=== PATIENT | female | born 1945 | race Two or more races ===

== ENCOUNTER 2023-01-12 23:16 | Inpatient (IN) | payer OTHER ==
[~2023-01-12] VITALS: Ht 149.9 cm; Wt 75.0 kg
[2023-01-12 23:49] LABS: Basophils # (auto) 0 10 ^3/uL (0-0.2); Basophils % (auto) 0.3 % (0.0-2.0); Eosinophils # (auto) 0 10 ^3/uL (0-0.8); Hematocrit 28.3 % (36.0-46.0); Hemoglobin 9.8 g/dL (12.2-16.2); Lymphocytes % (auto) 11.7 % (10.0-50.0); Mean Corpuscular Hemoglobin 29.9 pg (28.0-32.0); Mean Corpuscular Hgb Conc. 34.7 g/dL (32.0-36.0); Mean Corpuscular Volume 86.3 fL (80.0-100.0); Monocytes # (auto) 0.8 10 ^3/uL (0-1.3); Monocytes % (auto) 9.7 % (0.0-12.0); Neutrophils # (auto) 6.4 10 ^3/uL (1.6-8.6); Neutrophils % (auto) 78.3 % (37.0-80.0); Red Blood Cells 3.29 10^6/uL (4.0-5.20); Red Cell Distribution Width 14.5 % (11.8-14.3); White Blood Cell 8.1 10^3/uL (4.4-10.8)
[2023-01-13 00:07] LABS: Albumin 2.6 g/dL (3.4-5.0); Calcium 8.5 mg/dL (8.5-10.1); Magnesium 1.9 mg/dL (1.6-2.6); Potassium 3.6 mmol/L (3.5-5.1)
[2023-01-13 00:10] LABS: Bilirubin, Total 1.9 mg/dL (0.2-1.0); Total Protein 6.2 g/dL (6.4-8.2)
[2023-01-13] MEDS ORDERED: MORPHINE SULFATE INJ 2 MG/ml SYRG IV PRN (09:30)
[2023-01-13] MEDS ORDERED: AZITHROMYCIN 500MG/ 250ML 250 ML IV ONE (09:30)
[2023-01-13] MEDS ORDERED: cefTRIAXone 1GM/50ML D5W 50 ML IV ONE (09:30)
[2023-01-13] MEDS ORDERED: ASPirin 325 MG TAB PO ONE (09:30)
[2023-01-13] MEDS ORDERED: ALBUTEROL MEDNEB 2.5 mg/3ml NEB NEB PRN (09:45)
[2023-01-13] MEDS ORDERED: ALBUTEROL MEDNEB 2.5 mg/3ml NEB ONE (09:47)
[2023-01-13] MEDS ORDERED: IPRATROPIUM BROM 0.5 MG/2.5ML INH SOL ONE (09:47)
[2023-01-13] MEDS ORDERED: ERY05OO EACHEYE (09:49)
[2023-01-13] MEDS ORDERED: LOSA-69 PO (09:49)
[2023-01-13] MEDS ORDERED: LEVO-28 PO (09:49)
[2023-01-13] MEDS ORDERED: SIMV5TAB50 PO (09:49)
[2023-01-13] MEDS ORDERED: HYDR50TA15 PO (09:49)
[2023-01-13] MEDS ORDERED: FLUO0.1S12 EACHEYE (09:49)
[2023-01-13] MEDS ORDERED: PRED10TA PO (09:49)
[2023-01-13] MEDS ORDERED: PRED20TA2 PO (09:49)
[2023-01-13] MEDS ORDERED: FUR20T PO (09:49)
[2023-01-13] MEDS ORDERED: ATEN50TA PO (09:49)
[2023-01-13] MEDS ORDERED: CLAR1TAB21 PO (09:49)
[2023-01-13] MEDS ORDERED: HYDR200T36 PO (09:49)
[2023-01-13] MEDS ORDERED: IVER3TAB PO (09:49)
[2023-01-13] MEDS ORDERED: LEVO100T8 PO (09:49)
[2023-01-13 10:00] LABS: Cholesterol 122 mg/dL (< 200)
[2023-01-13] MEDS ORDERED: hydrALAZINE HCL 25 MG TAB PO SCH (10:00)
[2023-01-13 10:03] LABS: HDL Cholesterol 32 mg/dL (40-59); LDL Cholesterol 85 mg/dL (< 100); Triglycerides 90 mg/dL (< 150)
[2023-01-13 10:22] VITALS: BP 125/55
[2023-01-13] MEDS ORDERED: ENOXAPARIN SOD 80 MG/0.8ML SYRINGE SC ONE (10:45)
[2023-01-13] MEDS: ATENOLOL 50 MG TAB PO SCH ×2 (11:19→22:34)
[2023-01-13] MEDS: LOSARTAN POTASSIUM 50 MG TAB PO SCH ×2 (11:19→22:33)
[2023-01-13] MEDS: hydrOXYchloroQUINE SULFATE 200 MG TAB PO SCH ×2 (11:20→22:34)
[2023-01-13] MEDS: LEVOTHYROXINE SODIUM 100 MCG TAB PO SCH (11:21)
[2023-01-13] MEDS: PROMETHAZINE-DM 5 ML ORAL SYRUP PO PRN ×2 (12:06→20:10)
[2023-01-13] MEDS: SODIUM CHLORIDE 0.9% 1,000 ML IV SCH ×2 (13:02→23:48)
[2023-01-13] MEDS: ALBUTEROL MEDNEB 2.5 mg/3ml NEB NEB SCH ×3 (13:55→18:57)
[2023-01-13] MEDS: IPRATROPIUM BROM 0.5 MG/2.5ML INH SOL NEB SCH ×3 (13:55→18:57)
[2023-01-13] MEDS ORDERED: ENOXAPARIN SOD 80 MG/0.8ML SYRINGE SC SCH (22:00)
[2023-01-13] MEDS: hydrALAZINE HCL 10 MG TAB PO SCH (22:33)
[2023-01-14] MEDS: IPRATROPIUM BROM 0.5 MG/2.5ML INH SOL NEB SCH ×4 (00:19→17:53)
[2023-01-14] MEDS: ALBUTEROL MEDNEB 2.5 mg/3ml NEB NEB SCH ×4 (00:19→17:53)
[2023-01-14 00:36] VITALS: BP 132/50
[2023-01-14] MEDS: PROMETHAZINE-DM 5 ML ORAL SYRUP PO PRN ×4 (01:58→21:40)
[2023-01-14 05:19] VITALS: BP 132/64
[2023-01-14 06:04] LABS: Basophils # (auto) 0 10 ^3/uL (0-0.2); Basophils % (auto) 0.5 % (0.0-2.0); Eosinophils # (auto) 0.1 10 ^3/uL (0-0.8); Eosinophils % (auto) 0.7 % (0.0-7.0); Hematocrit 27.4 % (36.0-46.0); Hemoglobin 9.3 g/dL (12.2-16.2); Lymphocytes # (auto) 1.2 10 ^3/uL (0.4-5.4); Lymphocytes % (auto) 13.5 % (10.0-50.0); Mean Corpuscular Hemoglobin 29.6 pg (28.0-32.0); Mean Corpuscular Hgb Conc. 33.8 g/dL (32.0-36.0); Mean Corpuscular Volume 87.6 fL (80.0-100.0); Monocytes # (auto) 0.7 10 ^3/uL (0-1.3); Neutrophils # (auto) 6.6 10 ^3/uL (1.6-8.6); Neutrophils % (auto) 77.3 % (37.0-80.0); Red Blood Cells 3.13 10^6/uL (4.0-5.20); Red Cell Distribution Width 14.3 % (11.8-14.3); White Blood Cell 8.5 10^3/uL (4.4-10.8)
[2023-01-14 06:37] LABS: Albumin 2.6 g/dL (3.4-5.0); Calcium 8.4 mg/dL (8.5-10.1)
[2023-01-14 06:45] LABS: BUN/Creatinine Ratio 21.6; Bilirubin, Total 1.6 mg/dL (0.2-1.0); Total Protein 5.9 g/dL (6.4-8.2)
[2023-01-14 09:00] VITALS: BP 106/37
[2023-01-14] MEDS: hydrALAZINE HCL 10 MG TAB PO SCH ×2 (10:00→21:29)
[2023-01-14] MEDS: LOSARTAN POTASSIUM 50 MG TAB PO SCH ×2 (10:00→21:29)
[2023-01-14] MEDS ORDERED: AZITHROMYCIN 500MG/ 250ML 250 ML IV SCH (10:00)
[2023-01-14] MEDS: hydrOXYchloroQUINE SULFATE 200 MG TAB PO SCH ×2 (12:22→21:28)
[2023-01-14] MEDS: cefTRIAXone 1GM/50ML D5W 50 ML IV SCH (12:23)
[2023-01-14] MEDS: ASPirin 81 mg TAB PO SCH (12:23)
[2023-01-14] MEDS: ATENOLOL 50 MG TAB PO SCH ×2 (12:23→21:28)
[2023-01-14] MEDS: LEVOTHYROXINE SODIUM 100 MCG TAB PO SCH (12:23)
[2023-01-14 12:58] VITALS: BP 111/53
[2023-01-14] MEDS: SODIUM CHLORIDE 0.9% 1,000 ML IV SCH (14:06)
[2023-01-14 16:35] VITALS: BP 124/49
[2023-01-14] MEDS: ACETAMINOPHEN 325 MG TAB PO PRN (21:27)
[2023-01-14 21:48] VITALS: BP 129/45
[2023-01-14 22:25] LABS: Urine Bacteria NONE SEEN /hpf (None Seen); Urine Blood 2+ /uL (Negative); Urine Mucus FEW (None Seen); Urine Specific Gravity 1.027 (1.001-1.035); Urine WBC 5 /hpf (0 - 5)
[2023-01-15] VITALS (28 sets, daily range): BP systolic 106–160; BP diastolic 44–71
[2023-01-15] MEDS: ALBUTEROL MEDNEB 2.5 mg/3ml NEB NEB SCH ×3 (00:17→18:21)
[2023-01-15] MEDS: IPRATROPIUM BROM 0.5 MG/2.5ML INH SOL NEB SCH ×3 (00:17→18:20)
[2023-01-15] MEDS: PROMETHAZINE-DM 5 ML ORAL SYRUP PO PRN ×2 (03:21→22:24)
[2023-01-15] MEDS ORDERED: FUROSEMIDE 40 MG/4 ML VIAL IV ONE (08:30)
[2023-01-15] MEDS: ATENOLOL 50 MG TAB PO SCH ×2 (09:10→22:20)
[2023-01-15] MEDS: cefTRIAXone 1GM/50ML D5W 50 ML IV SCH (09:10)
[2023-01-15] MEDS: LOSARTAN POTASSIUM 50 MG TAB PO SCH ×2 (10:00→22:19)
[2023-01-15] MEDS: hydrOXYchloroQUINE SULFATE 200 MG TAB PO SCH ×2 (10:00→22:00)
[2023-01-15] MEDS: ASPirin 81 mg TAB PO SCH (10:00)
[2023-01-15] MEDS: LEVOTHYROXINE SODIUM 100 MCG TAB PO SCH (10:00)
[2023-01-15] MEDS: hydrALAZINE HCL 10 MG TAB PO SCH ×2 (10:00→22:19)
[2023-01-15] MEDS ORDERED: LORazepam 2MG/ML-1ML VIAL IV PRN (13:00)
[2023-01-15] MEDS: ALPRAZolam 0.5 MG TAB PO PRN (14:14)
[2023-01-15] MEDS: Ensure HIGH Protein Chocolate 8oz Bottle PO SCH (17:32)
[2023-01-15] MEDS: FUROSEMIDE 20 MG/2 ML VIAL IV SCH (17:32)
[2023-01-15] MEDS ORDERED: ALBUTEROL SULF 2.5 MG/0.5ML(0.5%) NEB SOLN ONE (17:37)
[2023-01-15] MEDS ORDERED: ALBUTEROL SULF 2.5 MG/0.5ML(0.5%) NEB SOLN NEB PRN (20:45)
[2023-01-15] MEDS: POTASSIUM EFFERVESENT TAB 25 MEQ PO SCH (22:20)
[2023-01-15 22:45] LABS: Potassium 3.8 mmol/L (3.5-5.1)
[2023-01-15 22:49] LABS: Magnesium 2.3 mg/dL (1.6-2.6)
[2023-01-16] VITALS (53 sets, daily range): BP systolic 90–174; BP diastolic 39–86
[2023-01-16] MEDS: IPRATROPIUM BROM 0.5 MG/2.5ML INH SOL NEB SCH ×4 (00:12→18:16)
[2023-01-16] MEDS: ALBUTEROL SULF 2.5 MG/0.5ML(0.5%) NEB SOLN NEB SCH ×4 (00:13→18:16)
[2023-01-16] MEDS: BUDESONIDE (INHALATION) 0.5 MG/2 ML NEB NEB SCH ×4 (00:13→18:16)
[2023-01-16] MEDS: FUROSEMIDE 20 MG/2 ML VIAL IV SCH ×2 (05:47→17:26)
[2023-01-16] MEDS: PROMETHAZINE-DM 5 ML ORAL SYRUP PO PRN ×3 (05:47→19:50)
[2023-01-16 06:05] LABS: Basophils # (auto) 0 10 ^3/uL (0-0.2); Eosinophils # (auto) 0.1 10 ^3/uL (0-0.8); Hemoglobin 8.3 g/dL (12.2-16.2); Lymphocytes # (auto) 0.8 10 ^3/uL (0.4-5.4); Monocytes # (auto) 0.6 10 ^3/uL (0-1.3); Red Cell Distribution Width 14.2 % (11.8-14.3)
[2023-01-16 06:08] LABS: Basophils % (auto) 0.3 % (0.0-2.0); Eosinophils % (auto) 1.3 % (0.0-7.0); Hematocrit 24.1 % (36.0-46.0); Lymphocytes % (auto) 10.4 % (10.0-50.0); Mean Corpuscular Hemoglobin 29.2 pg (28.0-32.0); Mean Corpuscular Hgb Conc. 34.5 g/dL (32.0-36.0); Mean Corpuscular Volume 84.6 fL (80.0-100.0); Monocytes % (auto) 7.4 % (0.0-12.0); Neutrophils # (auto) 6.5 10 ^3/uL (1.6-8.6); Neutrophils % (auto) 80.6 % (37.0-80.0); Red Blood Cells 2.85 10^6/uL (4.0-5.20); White Blood Cell 8.1 10^3/uL (4.4-10.8)
[2023-01-16 06:23] LABS: Potassium 4.2 mmol/L (3.5-5.1)
[2023-01-16 06:34] LABS: BUN/Creatinine Ratio 25.7; Calcium 8.3 mg/dL (8.5-10.1)
[2023-01-16] MEDS: Ensure HIGH Protein Chocolate 8oz Bottle PO SCH ×3 (08:14→17:26)
[2023-01-16] MEDS: cefTRIAXone 1GM/50ML D5W 50 ML IV SCH (08:15)
[2023-01-16] MEDS: hydrALAZINE HCL 10 MG TAB PO SCH ×2 (08:15→22:03)
[2023-01-16] MEDS: LOSARTAN POTASSIUM 50 MG TAB PO SCH ×2 (08:15→21:06)
[2023-01-16] MEDS: POTASSIUM EFFERVESENT TAB 25 MEQ PO SCH ×2 (08:16→21:06)
[2023-01-16] MEDS: ATENOLOL 50 MG TAB PO SCH ×2 (08:17→21:07)
[2023-01-16] MEDS: hydrOXYchloroQUINE SULFATE 200 MG TAB PO SCH ×2 (08:38→22:03)
[2023-01-16] MEDS: ASPirin 81 mg TAB PO SCH (08:38)
[2023-01-16] MEDS: LEVOTHYROXINE SODIUM 100 MCG TAB PO SCH (08:38)
[2023-01-16] MEDS ORDERED: FUROSEMIDE 40 MG/4 ML VIAL IV ONE (17:15)
[2023-01-16] MEDS ORDERED: AMIODARONE HCL 150 MG in D5W 5% 100 ML IV ONE (19:00)
[2023-01-16] MEDS ORDERED: dilTIAZem 25 MG/5 ML VIAL IV ONE ×2 (19:00→19:03)
[2023-01-16] MEDS ORDERED: AMIODARONE HCL (50 MG/ ML) 3 ML VIAL IV ONE (19:09)
[2023-01-16] MEDS ORDERED: AMIODARONE 450mg/250ml AE 250 ML IV ONE (19:09)
[2023-01-16] MEDS ORDERED: AMIODARONE HCL 900 MG in DEXTROSE 500 ML IV SCH (19:15)
[2023-01-16] MEDS: AMIODARONE 450mg/250ml AE 250 ML IV SCH ×5 (19:20→19:45)
[2023-01-16] MEDS: ALPRAZolam 0.5 MG TAB PO PRN ×2 (19:50→20:23)
[2023-01-16 21:07] LABS: Basophils # (auto) 0 10 ^3/uL (0-0.2); Basophils % (auto) 0.3 % (0.0-2.0); Eosinophils # (auto) 0.1 10 ^3/uL (0-0.8); Eosinophils % (auto) 0.9 % (0.0-7.0); Hematocrit 27.7 % (36.0-46.0); Hemoglobin 9.1 g/dL (12.2-16.2); Lymphocytes # (auto) 0.9 10 ^3/uL (0.4-5.4); Lymphocytes % (auto) 8.1 % (10.0-50.0); Mean Corpuscular Hemoglobin 29.2 pg (28.0-32.0); Mean Corpuscular Hgb Conc. 33.1 g/dL (32.0-36.0); Mean Corpuscular Volume 88.4 fL (80.0-100.0); Monocytes # (auto) 0.7 10 ^3/uL (0-1.3); Monocytes % (auto) 6.5 % (0.0-12.0); Neutrophils # (auto) 9.5 10 ^3/uL (1.6-8.6); Neutrophils % (auto) 84.2 % (37.0-80.0); Nucleated Red Blood Cells % 0.2 %; Red Blood Cells 3.13 10^6/uL (4.0-5.20); Red Cell Distribution Width 14.6 % (11.8-14.3); White Blood Cell 11.3 10^3/uL (4.4-10.8)
[2023-01-16 21:10] LABS: Albumin 2.2 g/dL (3.4-5.0); BUN/Creatinine Ratio 22.6; Calcium 8.6 mg/dL (8.5-10.1); Magnesium 2.1 mg/dL (1.6-2.6)
[2023-01-16 21:19] LABS: Bilirubin, Total 1.4 mg/dL (0.2-1.0); Total Protein 6.9 g/dL (6.4-8.2)
[2023-01-16 21:20] LABS: INR 1.03 (0.9-1.15); Partial Thromboplastin Time 23.9 sec (24.6-33.4)
[2023-01-16] MEDS: HEPARIN DRIP/D5W 100UNITS/ML 250 ML IV SCH (22:06)
[2023-01-17] VITALS (50 sets, daily range): BP systolic 97–150; BP diastolic 34–60
[2023-01-17] MEDS: ALBUTEROL SULF 2.5 MG/0.5ML(0.5%) NEB SOLN NEB SCH ×5 (00:16→22:29)
[2023-01-17] MEDS: IPRATROPIUM BROM 0.5 MG/2.5ML INH SOL NEB SCH ×5 (00:16→22:29)
[2023-01-17] MEDS: FUROSEMIDE 20 MG/2 ML VIAL IV SCH ×2 (06:26→19:19)
[2023-01-17 06:38] LABS: INR 1.02 (0.9-1.15); Partial Thromboplastin Time 29.3 sec (24.6-33.4)
[2023-01-17] MEDS: HEPARIN DRIP/D5W 100UNITS/ML 250 ML IV SCH ×3 (06:55→16:56)
[2023-01-17] MEDS ORDERED: HEPARIN SODIUM (PORCINE) 5000 UNITS/ML 1ML VIAL ONE (06:57)
[2023-01-17] MEDS: Ensure HIGH Protein Chocolate 8oz Bottle PO SCH ×3 (08:00→18:00)
[2023-01-17] MEDS ORDERED: HEPARIN DRIP/D5W 100UNITS/ML 250 ML IV SCH (09:30)
[2023-01-17] MEDS: BUDESONIDE (INHALATION) 0.5 MG/2 ML NEB NEB SCH ×2 (09:32→18:32)
[2023-01-17] MEDS: LEVOTHYROXINE SODIUM 100 MCG TAB PO SCH (11:22)
[2023-01-17] MEDS: ASPirin 81 mg TAB PO SCH (11:23)
[2023-01-17] MEDS: hydrALAZINE HCL 10 MG TAB PO SCH ×2 (11:24→21:23)
[2023-01-17] MEDS: ATENOLOL 50 MG TAB PO SCH ×2 (11:25→21:25)
[2023-01-17] MEDS: PROMETHAZINE-DM 5 ML ORAL SYRUP PO PRN ×4 (11:26→21:24)
[2023-01-17] MEDS: POTASSIUM EFFERVESENT TAB 25 MEQ PO SCH ×2 (11:27→21:22)
[2023-01-17] MEDS: LOSARTAN POTASSIUM 50 MG TAB PO SCH ×2 (11:27→21:23)
[2023-01-17] MEDS: cefTRIAXone 1GM/50ML D5W 50 ML IV SCH (11:54)
[2023-01-17] MEDS: hydrOXYchloroQUINE SULFATE 200 MG TAB PO SCH ×2 (12:07→21:22)
[2023-01-17 13:31] LABS: INR 1.03 (0.9-1.15); Partial Thromboplastin Time 48.1 sec (24.6-33.4)
[2023-01-17] MEDS: AMIODARONE 450mg/250ml AE 250 ML IV SCH (13:37)
[2023-01-17] MEDS: ALPRAZolam 0.5 MG TAB PO PRN (21:24)
[2023-01-17] MEDS ORDERED: HEPARIN SODIUM (PORCINE) 5000 UNITS/ML 1ML VIAL IV ONE (22:30)
[2023-01-18] VITALS (40 sets, daily range): BP systolic 105–148; BP diastolic 41–68
[2023-01-18] MEDS: FUROSEMIDE 20 MG/2 ML VIAL IV SCH ×2 (04:54→17:26)
[2023-01-18 06:29] LABS: INR 1.02 (0.9-1.15); Partial Thromboplastin Time 61.3 sec (24.6-33.4)
[2023-01-18] MEDS: ALBUTEROL SULF 2.5 MG/0.5ML(0.5%) NEB SOLN NEB SCH ×4 (06:44→23:54)
[2023-01-18] MEDS: IPRATROPIUM BROM 0.5 MG/2.5ML INH SOL NEB SCH ×4 (06:44→23:54)
[2023-01-18] MEDS: BUDESONIDE (INHALATION) 0.5 MG/2 ML NEB NEB SCH ×2 (06:45→18:04)
[2023-01-18] MEDS: HEPARIN DRIP/D5W 100UNITS/ML 250 ML IV SCH (07:40)
[2023-01-18] MEDS: AMIODARONE 450mg/250ml AE 250 ML IV SCH (07:40)
[2023-01-18] MEDS: PROMETHAZINE-DM 5 ML ORAL SYRUP PO PRN ×4 (08:42→22:57)
[2023-01-18 09:48] LABS: INR 1.04 (0.9-1.15)
[2023-01-18] MEDS: cefTRIAXone 1GM/50ML D5W 50 ML IV SCH (10:21)
[2023-01-18] MEDS: ASPirin 81 mg TAB PO SCH (10:21)
[2023-01-18] MEDS: Ensure HIGH Protein Chocolate 8oz Bottle PO SCH ×3 (10:21→18:44)
[2023-01-18] MEDS: ATENOLOL 50 MG TAB PO SCH ×2 (10:22→21:55)
[2023-01-18] MEDS: hydrALAZINE HCL 10 MG TAB PO SCH ×2 (10:22→21:54)
[2023-01-18] MEDS: LEVOTHYROXINE SODIUM 100 MCG TAB PO SCH (10:23)
[2023-01-18] MEDS: POTASSIUM EFFERVESENT TAB 25 MEQ PO SCH ×2 (10:24→21:54)
[2023-01-18] MEDS: hydrOXYchloroQUINE SULFATE 200 MG TAB PO SCH ×2 (10:24→21:53)
[2023-01-18] MEDS: LOSARTAN POTASSIUM 50 MG TAB PO SCH ×2 (11:33→21:54)
[2023-01-18] MEDS: AZITHROMYCIN 500MG/ 250ML 250 ML IV SCH (11:33)
[2023-01-18 11:54] LABS: Partial Thromboplastin Time 129.6 sec (24.6-33.4)
[2023-01-18] MEDS: methylPREDNISolone SOD SUCC 40 MG/ML VL IV SCH ×2 (14:23→21:53)
[2023-01-18 19:39] LABS: INR 1.01 (0.9-1.15)
[2023-01-18 19:41] LABS: Partial Thromboplastin Time 91.7 sec (24.6-33.4)
[2023-01-19] VITALS (31 sets, daily range): BP systolic 128–160; BP diastolic 47–75
[2023-01-19] MEDS: AMIODARONE 450mg/250ml AE 250 ML IV SCH (00:34)
[2023-01-19] MEDS: IPRATROPIUM BROM 0.5 MG/2.5ML INH SOL NEB SCH ×4 (05:46→23:50)
[2023-01-19] MEDS: BUDESONIDE (INHALATION) 0.5 MG/2 ML NEB NEB SCH ×2 (05:46→19:21)
[2023-01-19] MEDS: ALBUTEROL SULF 2.5 MG/0.5ML(0.5%) NEB SOLN NEB SCH ×4 (05:46→23:50)
[2023-01-19] MEDS: FUROSEMIDE 20 MG/2 ML VIAL IV SCH ×2 (06:04→17:44)
[2023-01-19] MEDS: methylPREDNISolone SOD SUCC 40 MG/ML VL IV SCH ×3 (06:04→21:48)
[2023-01-19] MEDS: HEPARIN DRIP/D5W 100UNITS/ML 250 ML IV SCH ×2 (07:00→09:00)
[2023-01-19 07:40] LABS: Basophils # (auto) 0 10 ^3/uL (0-0.2); Basophils % (auto) 0.3 % (0.0-2.0); Eosinophils # (auto) 0 10 ^3/uL (0-0.8); Hematocrit 23.5 % (36.0-46.0); Lymphocytes # (auto) 0.7 10 ^3/uL (0.4-5.4); Monocytes # (auto) 0.2 10 ^3/uL (0-1.3); Monocytes % (auto) 2.1 % (0.0-12.0); Red Blood Cells 2.78 10^6/uL (4.0-5.20); Red Cell Distribution Width 14.5 % (11.8-14.3)
[2023-01-19 07:42] LABS: Lymphocytes % (auto) 6.8 % (10.0-50.0); Mean Corpuscular Hemoglobin 28.6 pg (28.0-32.0); Mean Corpuscular Hgb Conc. 33.9 g/dL (32.0-36.0); Mean Corpuscular Volume 84.4 fL (80.0-100.0); Neutrophils # (auto) 9.2 10 ^3/uL (1.6-8.6); Neutrophils % (auto) 90.8 % (37.0-80.0); White Blood Cell 10.2 10^3/uL (4.4-10.8)
[2023-01-19 08:26] LABS: BUN/Creatinine Ratio 27.2; Calcium 8.7 mg/dL (8.5-10.1); Potassium 4.9 mmol/L (3.5-5.1)
[2023-01-19] MEDS: Ensure HIGH Protein Chocolate 8oz Bottle PO SCH ×3 (09:00→18:14)
[2023-01-19] MEDS: PROMETHAZINE-DM 5 ML ORAL SYRUP PO PRN ×3 (09:15→21:50)
[2023-01-19] MEDS: cefTRIAXone 1GM/50ML D5W 50 ML IV SCH (09:30)
[2023-01-19] MEDS: hydrALAZINE HCL 10 MG TAB PO SCH ×2 (09:37→21:49)
[2023-01-19] MEDS: ASPirin 81 mg TAB PO SCH (09:37)
[2023-01-19] MEDS: LEVOTHYROXINE SODIUM 100 MCG TAB PO SCH (09:38)
[2023-01-19] MEDS: hydrOXYchloroQUINE SULFATE 200 MG TAB PO SCH ×2 (09:38→21:50)
[2023-01-19] MEDS: POTASSIUM EFFERVESENT TAB 25 MEQ PO SCH ×2 (09:38→21:49)
[2023-01-19] MEDS: LOSARTAN POTASSIUM 50 MG TAB PO SCH ×2 (09:38→21:49)
[2023-01-19] MEDS: ATENOLOL 50 MG TAB PO SCH ×2 (09:39→21:50)
[2023-01-19] MEDS: AZITHROMYCIN 500MG/ 250ML 250 ML IV SCH (10:40)
[2023-01-19 11:10] LABS: INR 1.01 (0.9-1.15)
[2023-01-19 11:13] LABS: Partial Thromboplastin Time 95.4 sec (24.6-33.4)
[2023-01-19] MEDS ORDERED: HEPARIN DRIP/D5W 100UNITS/ML 250 ML IV SCH ×2 (12:15→20:15)
[2023-01-19] MEDS ORDERED: ACETYLCYSTEINE 20%(200MG/ML) SOL 4ML NEB SCH (14:00)
[2023-01-19 19:12] LABS: INR 1.01 (0.9-1.15); Partial Thromboplastin Time 46.7 sec (24.6-33.4)
[2023-01-19] MEDS: ACETYLCYSTEINE 20%(200MG/ML) SOL 4ML NEB SCH ×2 (19:22→23:50)
[2023-01-20] VITALS (24 sets, daily range): BP systolic 111–154; BP diastolic 50–65
[2023-01-20 02:32] LABS: INR 1.02 (0.9-1.15)
[2023-01-20 02:56] LABS: Partial Thromboplastin Time 81.4 sec (24.6-33.4)
[2023-01-20] MEDS: AMIODARONE 450mg/250ml AE 250 ML IV SCH (03:10)
[2023-01-20 05:41] LABS: INR 1.03 (0.9-1.15); Partial Thromboplastin Time 55.7 sec (24.6-33.4)
[2023-01-20] MEDS: FUROSEMIDE 20 MG/2 ML VIAL IV SCH ×2 (06:18→18:02)
[2023-01-20] MEDS: methylPREDNISolone SOD SUCC 40 MG/ML VL IV SCH ×3 (06:18→22:40)
[2023-01-20] MEDS: PROMETHAZINE-DM 5 ML ORAL SYRUP PO PRN ×2 (06:28→23:24)
[2023-01-20] MEDS: IPRATROPIUM BROM 0.5 MG/2.5ML INH SOL NEB SCH ×4 (06:32→23:55)
[2023-01-20] MEDS: BUDESONIDE (INHALATION) 0.5 MG/2 ML NEB NEB SCH ×2 (06:32→18:19)
[2023-01-20] MEDS: ALBUTEROL SULF 2.5 MG/0.5ML(0.5%) NEB SOLN NEB SCH ×4 (06:32→23:55)
[2023-01-20] MEDS: ACETYLCYSTEINE 20%(200MG/ML) SOL 4ML NEB SCH ×4 (06:32→23:55)
[2023-01-20] MEDS ORDERED: HEPARIN DRIP/D5W 100UNITS/ML 250 ML IV SCH (07:15)
[2023-01-20] MEDS: Ensure HIGH Protein Chocolate 8oz Bottle PO SCH ×3 (08:49→18:02)
[2023-01-20] MEDS: cefTRIAXone 1GM/50ML D5W 50 ML IV SCH (09:26)
[2023-01-20] MEDS: ASPirin 81 mg TAB PO SCH (09:26)
[2023-01-20] MEDS: hydrALAZINE HCL 10 MG TAB PO SCH ×3 (09:27→23:22)
[2023-01-20] MEDS: AMIODARONE HCL 200 MG TAB PO SCH ×2 (09:27→22:29)
[2023-01-20] MEDS: LEVOTHYROXINE SODIUM 100 MCG TAB PO SCH (09:28)
[2023-01-20] MEDS: LOSARTAN POTASSIUM 50 MG TAB PO SCH ×3 (09:28→23:23)
[2023-01-20] MEDS: POTASSIUM EFFERVESENT TAB 25 MEQ PO SCH ×2 (09:28→22:39)
[2023-01-20] MEDS: ATENOLOL 50 MG TAB PO SCH ×2 (09:28→22:53)
[2023-01-20] MEDS: hydrOXYchloroQUINE SULFATE 200 MG TAB PO SCH ×2 (09:28→22:39)
[2023-01-20] MEDS: AZITHROMYCIN 500MG/ 250ML 250 ML IV SCH (10:00)
[2023-01-20 11:32] LABS: INR 1.03 (0.9-1.15)
[2023-01-20 17:25] LABS: INR 1.03 (0.9-1.15); Partial Thromboplastin Time 51.1 sec (24.6-33.4)
[2023-01-21] VITALS (24 sets, daily range): BP systolic 116–148; BP diastolic 41–72
[2023-01-21] MEDS: methylPREDNISolone SOD SUCC 40 MG/ML VL IV SCH ×3 (06:21→21:38)
[2023-01-21] MEDS: FUROSEMIDE 20 MG/2 ML VIAL IV SCH ×2 (06:21→17:59)
[2023-01-21] MEDS: IPRATROPIUM BROM 0.5 MG/2.5ML INH SOL NEB SCH ×3 (06:43→19:15)
[2023-01-21] MEDS: ACETYLCYSTEINE 20%(200MG/ML) SOL 4ML NEB SCH ×3 (06:43→19:16)
[2023-01-21] MEDS: ALBUTEROL SULF 2.5 MG/0.5ML(0.5%) NEB SOLN NEB SCH ×3 (06:43→19:15)
[2023-01-21] MEDS: BUDESONIDE (INHALATION) 0.5 MG/2 ML NEB NEB SCH ×2 (06:43→19:16)
[2023-01-21 07:07] LABS: INR 1.03 (0.9-1.15); Partial Thromboplastin Time 27.8 sec (24.6-33.4)
[2023-01-21] MEDS: Ensure HIGH Protein Chocolate 8oz Bottle PO SCH ×3 (08:00→18:02)
[2023-01-21] MEDS: cefTRIAXone 1GM/50ML D5W 50 ML IV SCH (09:00)
[2023-01-21] MEDS: hydrALAZINE HCL 10 MG TAB PO SCH ×2 (10:00→21:39)
[2023-01-21] MEDS: AZITHROMYCIN 500MG/ 250ML 250 ML IV SCH (10:00)
[2023-01-21] MEDS: ASPirin 81 mg TAB PO SCH (10:00)
[2023-01-21] MEDS: POTASSIUM EFFERVESENT TAB 25 MEQ PO SCH ×2 (10:00→21:41)
[2023-01-21] MEDS: LOSARTAN POTASSIUM 50 MG TAB PO SCH ×2 (10:00→21:40)
[2023-01-21] MEDS: LEVOTHYROXINE SODIUM 100 MCG TAB PO SCH (10:00)
[2023-01-21] MEDS: AMIODARONE HCL 200 MG TAB PO SCH ×2 (10:00→21:38)
[2023-01-21] MEDS: ATENOLOL 50 MG TAB PO SCH ×2 (10:00→21:43)
[2023-01-21] MEDS: hydrOXYchloroQUINE SULFATE 200 MG TAB PO SCH ×2 (12:16→21:43)
[2023-01-21] MEDS: PROMETHAZINE-DM 5 ML ORAL SYRUP PO PRN ×2 (18:00→21:43)
[2023-01-22] VITALS (29 sets, daily range): BP systolic 118–162; BP diastolic 47–73
[2023-01-22] MEDS: ALBUTEROL SULF 2.5 MG/0.5ML(0.5%) NEB SOLN NEB SCH ×4 (00:34→18:14)
[2023-01-22] MEDS: IPRATROPIUM BROM 0.5 MG/2.5ML INH SOL NEB SCH ×4 (00:34→18:14)
[2023-01-22] MEDS: ACETYLCYSTEINE 20%(200MG/ML) SOL 4ML NEB SCH ×4 (00:34→18:15)
[2023-01-22] MEDS: FUROSEMIDE 20 MG/2 ML VIAL IV SCH ×2 (05:41→18:01)
[2023-01-22] MEDS: methylPREDNISolone SOD SUCC 40 MG/ML VL IV SCH ×3 (05:41→21:15)
[2023-01-22] MEDS: PROMETHAZINE-DM 5 ML ORAL SYRUP PO PRN ×3 (05:44→23:45)
[2023-01-22 06:16] LABS: Basophils # (auto) 0 10 ^3/uL (0-0.2); Basophils % (auto) 0.1 % (0.0-2.0); Eosinophils # (auto) 0 10 ^3/uL (0-0.8); Hematocrit 26.3 % (36.0-46.0); Hemoglobin 8.7 g/dL (12.2-16.2); Lymphocytes # (auto) 0.9 10 ^3/uL (0.4-5.4); Lymphocytes % (auto) 5.4 % (10.0-50.0); Mean Corpuscular Hemoglobin 28.4 pg (28.0-32.0); Mean Corpuscular Hgb Conc. 33.1 g/dL (32.0-36.0); Mean Corpuscular Volume 85.8 fL (80.0-100.0); Monocytes # (auto) 0.8 10 ^3/uL (0-1.3); Monocytes % (auto) 4.8 % (0.0-12.0); Neutrophils % (auto) 89.7 % (37.0-80.0); Nucleated Red Blood Cells % 0.2 %; Red Blood Cells 3.07 10^6/uL (4.0-5.20); Red Cell Distribution Width 14.8 % (11.8-14.3); White Blood Cell 16.7 10^3/uL (4.4-10.8)
[2023-01-22 06:33] LABS: BUN/Creatinine Ratio 47.9; Calcium 8.5 mg/dL (8.5-10.1)
[2023-01-22] MEDS: Ensure HIGH Protein Chocolate 8oz Bottle PO SCH ×3 (09:13→18:12)
[2023-01-22] MEDS: cefTRIAXone 1GM/50ML D5W 50 ML IV SCH (09:14)
[2023-01-22] MEDS: hydrOXYchloroQUINE SULFATE 200 MG TAB PO SCH ×2 (09:33→21:17)
[2023-01-22] MEDS: AZITHROMYCIN 500MG/ 250ML 250 ML IV SCH (09:33)
[2023-01-22] MEDS: ASPirin 81 mg TAB PO SCH (09:34)
[2023-01-22] MEDS: POTASSIUM EFFERVESENT TAB 25 MEQ PO SCH ×2 (09:34→21:14)
[2023-01-22] MEDS: LEVOTHYROXINE SODIUM 100 MCG TAB PO SCH (09:35)
[2023-01-22] MEDS: hydrALAZINE HCL 10 MG TAB PO SCH ×2 (09:35→21:16)
[2023-01-22] MEDS: AMIODARONE HCL 200 MG TAB PO SCH ×2 (09:36→21:16)
[2023-01-22] MEDS: ATENOLOL 50 MG TAB PO SCH ×2 (09:36→21:16)
[2023-01-22] MEDS: LOSARTAN POTASSIUM 50 MG TAB PO SCH ×2 (09:36→21:15)
[2023-01-22] MEDS: BUDESONIDE (INHALATION) 0.5 MG/2 ML NEB NEB SCH ×2 (10:00→18:14)
[2023-01-22] MEDS ORDERED: IOHEXOL 350 MG/ML 100ML IJ ONE (14:57)
[2023-01-22] MEDS: ACETAMINOPHEN 325 MG TAB PO PRN (21:15)
[2023-01-23] VITALS (13 sets, daily range): BP systolic 130–154; BP diastolic 51–68
[2023-01-23] MEDS: IPRATROPIUM BROM 0.5 MG/2.5ML INH SOL NEB SCH ×4 (00:23→19:26)
[2023-01-23] MEDS: ALBUTEROL SULF 2.5 MG/0.5ML(0.5%) NEB SOLN NEB SCH ×4 (00:23→19:26)
[2023-01-23] MEDS: ACETYLCYSTEINE 20%(200MG/ML) SOL 4ML NEB SCH ×4 (00:24→19:26)
[2023-01-23 05:59] LABS: Hematocrit 27.7 % (36.0-46.0); Mean Corpuscular Hemoglobin 28.3 pg (28.0-32.0); Mean Corpuscular Hgb Conc. 32.4 g/dL (32.0-36.0); Mean Corpuscular Volume 87.2 fL (80.0-100.0); Red Blood Cells 3.18 10^6/uL (4.0-5.20); Red Cell Distribution Width 15.5 % (11.8-14.3); White Blood Cell 15.7 10^3/uL (4.4-10.8)
[2023-01-23] MEDS: methylPREDNISolone SOD SUCC 40 MG/ML VL IV SCH ×3 (06:01→22:33)
[2023-01-23] MEDS: FUROSEMIDE 20 MG/2 ML VIAL IV SCH ×2 (06:01→17:31)
[2023-01-23] MEDS: BUDESONIDE (INHALATION) 0.5 MG/2 ML NEB NEB SCH ×2 (06:31→19:26)
[2023-01-23 06:34] LABS: Potassium 4.2 mmol/L (3.5-5.1)
[2023-01-23 06:38] LABS: Basophils % (manual) 0 (0.0-2.0); Blast Cells 0; Eosinophils % (manual) 0 (0-7); Metamyelocytes % 0; Monocytes % (manual) 0 (0-12); Promyelocytes % 0; Reactive Lymphocytes 0
[2023-01-23 07:04] LABS: BUN/Creatinine Ratio 53.9; Calcium 8.4 mg/dL (8.5-10.1)
[2023-01-23 07:46] LABS: Band Neutrophils % (manual) 2; Lymphocytes % (manual) 6 (10.0-50.0); Myelocytes % 2
[2023-01-23] MEDS: LEVOTHYROXINE SODIUM 100 MCG TAB PO SCH (08:03)
[2023-01-23] MEDS: Ensure HIGH Protein Chocolate 8oz Bottle PO SCH ×3 (08:15→17:31)
[2023-01-23] MEDS: LOSARTAN POTASSIUM 50 MG TAB PO SCH ×2 (09:32→22:35)
[2023-01-23] MEDS: POTASSIUM EFFERVESENT TAB 25 MEQ PO SCH ×2 (09:32→22:30)
[2023-01-23] MEDS: hydrALAZINE HCL 10 MG TAB PO SCH ×2 (09:33→22:34)
[2023-01-23] MEDS: cefTRIAXone 1GM/50ML D5W 50 ML IV SCH (09:34)
[2023-01-23] MEDS: AZITHROMYCIN 500MG/ 250ML 250 ML IV SCH (09:34)
[2023-01-23] MEDS: ATENOLOL 50 MG TAB PO SCH (09:35)
[2023-01-23] MEDS: ASPirin 81 mg TAB PO SCH (09:35)
[2023-01-23] MEDS: AMIODARONE HCL 200 MG TAB PO SCH ×2 (09:36→22:35)
[2023-01-23] MEDS: hydrOXYchloroQUINE SULFATE 200 MG TAB PO SCH ×2 (09:37→22:33)
[2023-01-23] MEDS: PROMETHAZINE-DM 5 ML ORAL SYRUP PO PRN ×2 (10:02→22:32)
[2023-01-24] MEDS: IPRATROPIUM BROM 0.5 MG/2.5ML INH SOL NEB SCH ×4 (01:09→18:42)
[2023-01-24] MEDS: ALBUTEROL SULF 2.5 MG/0.5ML(0.5%) NEB SOLN NEB SCH ×4 (01:09→18:42)
[2023-01-24] MEDS: ACETYLCYSTEINE 20%(200MG/ML) SOL 4ML NEB SCH ×4 (01:09→18:42)
[2023-01-24] MEDS: ATENOLOL 50 MG TAB PO SCH ×3 (01:15→21:25)
[2023-01-24 05:00] VITALS: BP 135/73
[2023-01-24] MEDS: FUROSEMIDE 20 MG/2 ML VIAL IV SCH ×2 (05:30→21:21)
[2023-01-24] MEDS: methylPREDNISolone SOD SUCC 40 MG/ML VL IV SCH ×3 (05:31→21:21)
[2023-01-24] MEDS: BUDESONIDE (INHALATION) 0.5 MG/2 ML NEB NEB SCH ×2 (06:06→18:42)
[2023-01-24 09:00] VITALS: BP 117/57
[2023-01-24] MEDS: cefTRIAXone 1GM/50ML D5W 50 ML IV SCH (09:59)
[2023-01-24] MEDS: POTASSIUM EFFERVESENT TAB 25 MEQ PO SCH ×2 (09:59→21:23)
[2023-01-24] MEDS: LOSARTAN POTASSIUM 50 MG TAB PO SCH ×2 (10:00→21:22)
[2023-01-24] MEDS: AMIODARONE HCL 200 MG TAB PO SCH (10:00)
[2023-01-24] MEDS: ASPirin 81 mg TAB PO SCH (10:00)
[2023-01-24] MEDS: hydrALAZINE HCL 10 MG TAB PO SCH ×2 (10:01→21:22)
[2023-01-24] MEDS: LEVOTHYROXINE SODIUM 100 MCG TAB PO SCH (10:06)
[2023-01-24] MEDS: hydrOXYchloroQUINE SULFATE 200 MG TAB PO SCH ×2 (10:06→21:23)
[2023-01-24] MEDS: AZITHROMYCIN 500MG/ 250ML 250 ML IV SCH (10:11)
[2023-01-24] MEDS: Ensure HIGH Protein Chocolate 8oz Bottle PO SCH ×3 (10:12→18:51)
[2023-01-24] MEDS ORDERED: LACTULOSE 20Gm/30ML SOLN PO PRN (15:15)
[2023-01-24 17:05] VITALS: BP 132/62
[2023-01-24 22:00] VITALS: BP 133/67
[2023-01-25] VITALS (13 sets, daily range): BP systolic 113–179; BP diastolic 59–81
[2023-01-25] MEDS: ALBUTEROL SULF 2.5 MG/0.5ML(0.5%) NEB SOLN NEB SCH ×4 (00:26→18:43)
[2023-01-25] MEDS: IPRATROPIUM BROM 0.5 MG/2.5ML INH SOL NEB SCH ×4 (00:26→18:43)
[2023-01-25] MEDS: ACETYLCYSTEINE 20%(200MG/ML) SOL 4ML NEB SCH ×3 (00:27→12:00)
[2023-01-25] MEDS: methylPREDNISolone SOD SUCC 40 MG/ML VL IV SCH ×2 (06:21→14:33)
[2023-01-25] MEDS: FUROSEMIDE 20 MG/2 ML VIAL IV SCH (06:21)
[2023-01-25] MEDS: Ensure HIGH Protein Chocolate 8oz Bottle PO SCH ×3 (07:27→18:31)
[2023-01-25] MEDS ORDERED: IODIXANOL 320MG/ML 100ML BTL IV ONE ×3 (07:48→08:58)
[2023-01-25] MEDS ORDERED: LIDOCAINE 2%HCL (LOCAL ANESTH.) INJ 10ml MDV ONE (07:48)
[2023-01-25] MEDS ORDERED: HEPARIN SODIUM (PORCINE) 5000 UNITS/ML 1ML VIAL ONE (08:09)
[2023-01-25] MEDS ORDERED: ANGIOMAX 250 MG VIAL IV ONE (08:09)
[2023-01-25] MEDS ORDERED: VERAPAMIL 2.5MG/ML INJ 2ML VIAL IV ONE (08:10)
[2023-01-25] MEDS ORDERED: fentaNYL CITRATE 100 MCG/2 ML VL ONE (08:10)
[2023-01-25] MEDS ORDERED: SODIUM CHL 0.9% 50 ML ONE (08:10)
[2023-01-25] MEDS ORDERED: MIDAZOLAM HCL 2MG/2ML 2ml VIAL (1mg/ml) ONE (08:10)
[2023-01-25] MEDS ORDERED: EPTIFIBATIDE INJ (2MG/ML) 10ML VIAL IV ONE ×2 (08:55→09:08)
[2023-01-25] MEDS ORDERED: ATROPINE SULF 1 MG/10ml SYR ONE (09:00)
[2023-01-25] MEDS ORDERED: EPINEPHrine HCL 1 MG/10 ML SYRG ONE (09:00)
[2023-01-25] MEDS ORDERED: TICAGRELOR 90 MG TAB ONE (09:07)
[2023-01-25] MEDS ORDERED: ASPirin 325 MG TAB ONE (09:07)
[2023-01-25] MEDS: ATENOLOL 50 MG TAB PO SCH ×2 (10:00→22:00)
[2023-01-25] MEDS: POTASSIUM EFFERVESENT TAB 25 MEQ PO SCH (10:00)
[2023-01-25] MEDS: BUDESONIDE (INHALATION) 0.5 MG/2 ML NEB NEB SCH ×2 (10:00→18:43)
[2023-01-25] MEDS: cefTRIAXone 1GM/50ML D5W 50 ML IV SCH (10:08)
[2023-01-25] MEDS: AZITHROMYCIN 500MG/ 250ML 250 ML IV SCH (10:09)
[2023-01-25] MEDS: ASPirin 81 mg TAB PO SCH (10:10)
[2023-01-25] MEDS: hydrALAZINE HCL 10 MG TAB PO SCH ×2 (10:10→22:11)
[2023-01-25] MEDS: LOSARTAN POTASSIUM 50 MG TAB PO SCH ×2 (10:11→22:10)
[2023-01-25] MEDS: hydrOXYchloroQUINE SULFATE 200 MG TAB PO SCH ×2 (10:14→22:09)
[2023-01-25] MEDS: LEVOTHYROXINE SODIUM 100 MCG TAB PO SCH (10:14)
[2023-01-25] MEDS: MORPHINE SULFATE 4 MG/ML SYR/VIAL IV PRN ×2 (10:32→15:52)
[2023-01-25] MEDS: NITROGLYCERIN 0.4 MG SL TAB SL PRN ×2 (10:33→15:44)
[2023-01-25] MEDS ORDERED: ONDANSETRON HCL 4 MG/2 ML VIAL ONE (10:39)
[2023-01-25] MEDS ORDERED: ONDANSETRON HCL 4 MG/2 ML VIAL IV ONE (10:45)
[2023-01-25] MEDS ORDERED: NITROGLYCERIN 0.2MG/HR TOPICAL PATCH TD ONE (11:45)
[2023-01-25] MEDS: ISOSORBIDE DINITRATE 10 MG TAB PO SCH ×2 (14:34→18:31)
[2023-01-25] MEDS ORDERED: CLOPIDOGREL 300 MG TAB PO ONE (15:00)
[2023-01-25] MEDS: RANOLAZINE ER 500 MG TAB PO SCH (22:09)
[2023-01-25] MEDS: predniSONE 20 MG TAB PO SCH (22:10)
[2023-01-26] MEDS: ALBUTEROL SULF 2.5 MG/0.5ML(0.5%) NEB SOLN NEB SCH ×4 (00:48→18:42)
[2023-01-26] MEDS: IPRATROPIUM BROM 0.5 MG/2.5ML INH SOL NEB SCH ×4 (00:48→18:42)
[2023-01-26 05:00] VITALS: BP 156/66
[2023-01-26] MEDS: ISOSORBIDE DINITRATE 10 MG TAB PO SCH ×3 (05:29→17:54)
[2023-01-26 06:12] LABS: Basophils # (auto) 0 10 ^3/uL (0-0.2); Eosinophils # (auto) 0 10 ^3/uL (0-0.8); Hematocrit 31.6 % (36.0-46.0); Hemoglobin 10.7 g/dL (12.2-16.2); Lymphocytes # (auto) 0.7 10 ^3/uL (0.4-5.4); Lymphocytes % (auto) 3.5 % (10.0-50.0); Mean Corpuscular Hemoglobin 29.1 pg (28.0-32.0); Mean Corpuscular Hgb Conc. 33.9 g/dL (32.0-36.0); Mean Corpuscular Volume 85.9 fL (80.0-100.0); Monocytes # (auto) 0.9 10 ^3/uL (0-1.3); Monocytes % (auto) 4.6 % (0.0-12.0); Neutrophils # (auto) 17.6 10 ^3/uL (1.6-8.6); Neutrophils % (auto) 91.9 % (37.0-80.0); Red Blood Cells 3.68 10^6/uL (4.0-5.20); Red Cell Distribution Width 15.6 % (11.8-14.3); White Blood Cell 19.1 10^3/uL (4.4-10.8)
[2023-01-26] MEDS: BUDESONIDE (INHALATION) 0.5 MG/2 ML NEB NEB SCH ×2 (06:23→18:42)
[2023-01-26 06:38] LABS: BUN/Creatinine Ratio 39.8; Calcium 8.6 mg/dL (8.5-10.1); Potassium 4.2 mmol/L (3.5-5.1)
[2023-01-26 06:44] VITALS: BP 136/77
[2023-01-26] MEDS: Ensure HIGH Protein Chocolate 8oz Bottle PO SCH ×3 (08:00→17:55)
[2023-01-26 09:00] VITALS: BP 122/72
[2023-01-26] MEDS ORDERED: FUROSEMIDE 40 MG TAB PO SCH (10:00)
[2023-01-26] MEDS: hydrALAZINE HCL 10 MG TAB PO SCH ×2 (10:01→22:33)
[2023-01-26] MEDS: POTASSIUM EFFERVESENT TAB 25 MEQ PO SCH (10:01)
[2023-01-26] MEDS: LEVOTHYROXINE SODIUM 100 MCG TAB PO SCH (10:02)
[2023-01-26] MEDS: LOSARTAN POTASSIUM 50 MG TAB PO SCH ×2 (10:02→22:31)
[2023-01-26] MEDS: predniSONE 20 MG TAB PO SCH ×2 (10:02→22:31)
[2023-01-26] MEDS: ASPirin 81 mg TAB PO SCH (10:02)
[2023-01-26] MEDS: ATENOLOL 50 MG TAB PO SCH ×2 (10:03→22:31)
[2023-01-26] MEDS: RANOLAZINE ER 500 MG TAB PO SCH ×2 (10:03→22:31)
[2023-01-26] MEDS: CLOPIDOGREL BISULFATE 75 MG TAB PO SCH (10:04)
[2023-01-26] MEDS: hydrOXYchloroQUINE SULFATE 200 MG TAB PO SCH ×2 (10:05→22:33)
[2023-01-26 13:00] VITALS: BP 138/69
[2023-01-26 16:46] VITALS: BP 116/64
[2023-01-26] MEDS: FUROSEMIDE 40 MG TAB PO SCH (17:55)
[2023-01-26 22:00] VITALS: BP 140/66
[2023-01-27] MEDS: ALBUTEROL SULF 2.5 MG/0.5ML(0.5%) NEB SOLN NEB SCH ×4 (00:42→18:58)
[2023-01-27] MEDS: IPRATROPIUM BROM 0.5 MG/2.5ML INH SOL NEB SCH ×4 (00:42→18:58)
[2023-01-27 05:00] VITALS: BP 136/62
[2023-01-27] MEDS: ISOSORBIDE DINITRATE 10 MG TAB PO SCH ×3 (05:21→18:22)
[2023-01-27] MEDS: FUROSEMIDE 40 MG TAB PO SCH ×2 (05:21→18:22)
[2023-01-27] MEDS: BUDESONIDE (INHALATION) 0.5 MG/2 ML NEB NEB SCH ×2 (06:07→18:59)
[2023-01-27 08:58] VITALS: BP 103/64
[2023-01-27] MEDS: hydrALAZINE HCL 10 MG TAB PO SCH (09:32)
[2023-01-27] MEDS: CLOPIDOGREL BISULFATE 75 MG TAB PO SCH (09:33)
[2023-01-27] MEDS: RANOLAZINE ER 500 MG TAB PO SCH (09:33)
[2023-01-27] MEDS: LOSARTAN POTASSIUM 50 MG TAB PO SCH (09:34)
[2023-01-27] MEDS: hydrOXYchloroQUINE SULFATE 200 MG TAB PO SCH (09:34)
[2023-01-27] MEDS: predniSONE 20 MG TAB PO SCH (09:35)
[2023-01-27] MEDS: ASPirin 81 mg TAB PO SCH (09:35)
[2023-01-27] MEDS: ATENOLOL 50 MG TAB PO SCH (09:36)
[2023-01-27] MEDS: LEVOTHYROXINE SODIUM 100 MCG TAB PO SCH (09:36)
[2023-01-27] MEDS: POTASSIUM EFFERVESENT TAB 25 MEQ PO SCH (09:37)
[2023-01-27] MEDS: Ensure HIGH Protein Chocolate 8oz Bottle PO SCH ×3 (09:38→18:23)
[2023-01-27 13:30] VITALS: BP 113/58
[2023-01-27 16:29] VITALS: BP 101/41
== END 2023-01-27 21:00 | DRG 246 ==
LOC: ER 23:16 → TELE 01-13 09:26 → TELE-EAST 01-13 23:18 → DOU IN ICU 01-15 11:20 → TELE-WESTW 01-23 15:57
PROVIDERS: ADMIT Nurse Practitioner Family; ATTEND Hospitalist
PROC: 5A09357 Assistance with Respiratory Ventilation, Less than 24 Consecutive Hours, Continuous Positive Airway Pressure (ICD-10-PCS; 2023-01-15)
PROC: 5A09357 Assistance with Respiratory Ventilation, Less than 24 Consecutive Hours, Continuous Positive Airway Pressure (ICD-10-PCS; 2023-01-16)
PROC: 4A143B0 Monitoring of Venous Pressure, Central, Percutaneous Approach (ICD-10-PCS; 2023-01-17)
PROC: 02HV33Z Insertion of Infusion Device into Superior Vena Cava, Percutaneous Approach (ICD-10-PCS; 2023-01-17)
PROC: 5A09357 Assistance with Respiratory Ventilation, Less than 24 Consecutive Hours, Continuous Positive Airway Pressure (ICD-10-PCS; 2023-01-17)
PROC: 027034Z Dilation of Coronary Artery, One Artery with Drug-eluting Intraluminal Device, Percutaneous Approach (ICD-10-PCS; principal; 2023-01-25)
PROC: B211YZZ Fluoroscopy of Multiple Coronary Arteries using Other Contrast (ICD-10-PCS; 2023-01-25)
DX: I21.4 Non-ST elevation (NSTEMI) myocardial infarction (principal); J18.9 Pneumonia, unspecified organism; J96.21 Acute and chronic respiratory failure with hypoxia; E46 Unspecified protein-calorie malnutrition; J44.1 Chronic obstructive pulmonary disease with (acute) exacerbation; J44.0 Chronic obstructive pulmonary disease with (acute) lower respiratory infection; J98.11 Atelectasis; E66.9 Obesity, unspecified; D64.9 Anemia, unspecified; E07.9 Disorder of thyroid, unspecified; E11.65 Type 2 diabetes mellitus with hyperglycemia; I48.0 Paroxysmal atrial fibrillation; Z20.822 Contact with and (suspected) exposure to COVID-19; I25.10 Atherosclerotic heart disease of native coronary artery without angina pectoris; G47.30 Sleep apnea, unspecified; I11.0 Hypertensive heart disease with heart failure; I50.9 Heart failure, unspecified; Z68.34 Body mass index [BMI] 34.0-34.9, adult; Z98.61 Coronary angioplasty status
CPT/HCPCS: 36415; 36600; 71045; 71275; 80048; 80053; 80061; 81001; 82805; 83036; 83735; 83880; 84132; 84443; 84484; 85007; 85025; 85027; 85379; 85610; 85730; 86850; 86900; 86901; 87070; 87205; 87426; 87804; 92928; 93005; 93306; 93454; 93970; 94640; 94660; 94667; 94668; 97110; 97116; 97163; 97530; 99152; 99153; G0378; J0696; J2001; J2250; J2405; J7060; Q9967